=== PATIENT | female | born 1995 | race Caucasian/White ===

== ENCOUNTER 2017-10-29 19:45 | Emergency (ER) | payer MEDICAID ==
[2017-10-29 19:59] VITALS: BP 113/69; PULSE 81; RESP 16; TEMP 98; O2SAT 100
[2017-10-29] MEDS ORDERED: Sodium Chloride 0.9% 1,000 ML IV STA (20:27)
[2017-10-29 21:04] LABS: BASO % 0.3 % (0.0-2.0); EOS # 0.2 K/uL (0.0-0.7); EOS % 2.9 % (0.0-4.0); HEMOGLOBIN 12.4 g/dL (12.0-16.0); LYMPH # 1.5 K/uL (1.0-4.3); MEAN CELL VOLUME 92.1 fl (81.0-99.0); MEAN CORPUSCULAR HEMOGLOBIN 31.4 pg (27.0-31.0); MEAN CORPUSCULAR HGB CONC 34.1 g/dL (33.0-37.0); MEAN PLATELET VOLUME 9.5 fl (7.2-11.7); MONO # 0.5 K/uL (0.0-0.8); MONO % 8.2 % (0.0-10.0); NEUT # 4.1 K/uL (1.8-7.0); NEUT % 65.6 % (50.0-75.0); RBC 3.96 Mil/uL (3.80-5.20); RED CELL DISTRIBUTION WIDTH 12.9 % (11.5-14.5); WHITE BLOOD COUNT 6.3 K/uL (4.8-10.8)
[2017-10-29 21:17] LABS: ALB/GLOB RATIO 1.2 (1.0-2.1); ALBUMIN 4.5 g/dL (3.5-5.0); ALT/SGPT 33 U/L (9-52); AST/SGOT 21 U/L (14-36); BLOOD UREA NITROGEN 12 mg/dl (7-17); CALCIUM 9.2 mg/dL (8.4-10.2); GFR AFRICAN-AMERICAN > 60; GFR NON-AFRICAN AMERICAN > 60; LIPASE 37 U/L (23-300)
[2017-10-29 21:20] LABS: SQUAMOUS EPITHIAL < 1 /hpf (0-5); URINE BILIRUBIN NEGATIVE (NEGATIVE); URINE BLOOD NEGATIVE (NEGATIVE); URINE CLARITY CLEAR (Clear); URINE COLOR YELLOW (YELLOW); URINE GLUCOSE (UA) NEG (Normal); URINE LEUKOCYTE ESTERASE NEG Leu/uL (Negative); URINE PROTEIN NEGATIVE (NEGATIVE); URINE UROBILINOGEN 0.2-1.0 mg/dL (0.2-1.0)
--- NOTE | 2017-10-29 21:24 | ED PDOC ---
HPI: Abdomen Time Seen by Provider: 10/29/17 20:09 Chief Complaint (Nursing): Abdominal Pain Chief Complaint (Provider): Abdominal pain History Per: Patient History/Exam Limitations: no limitations Onset/Duration Of Symptoms: Days (2) Outside of [place] travel?: No Current Symptoms Are (Timing): Still Present Location Of Pain/Discomfort: Diffuse Quality Of Discomfort: "Pain" Associated Symptoms: Nausea, Back Pain. denies: Vomiting Additional History Per: Patient Additional Complaint(s): 21yo female, presents to ED with complaints of abdominal pain and flank pain for the past 2 days. Patient states the pain radiates to her right flank and reports she had similar pain in the past which was related to an ovarian cyst. She denies any fever, and states she has been taking Motrin/ Tylenol with occasional relief. She reports occasional nausea but denies any vomiting or diarrhea; patient has normal appetite as well. No other medical complaints. Abnormal Vaginal Bleeding: No Last Menstral Period: 10/05/17 Past Medical History Reviewed: Historical Data, Nursing Documentation, Vital Signs Vital Signs: Last Vital Signs Temp 98.0 F 10/29/17 19:56 Pulse 81 10/29/17 19:56 Resp 16 10/29/17 19:56 BP 113/69 10/29/17 19:56 Pulse Ox 100 10/29/17 21:27 - Medical History PMH: No Chronic Diseases - Surgical History Surgical History: No Surg Hx - Family History Family History: States: No Known Family Hx - Home Medications Home Medications: Ambulatory Orders Medication Instructions Recorded Naproxen [Naprosyn] 500 mg PO Q12 #14 tab 10/29/17 - Allergies Allergies/Adverse Reactions: Allergies Allergy/AdvReac Type Severity Reaction Status Date / Time No Known Allergies Allergy Verified 10/29/17 20:27 Review of Systems ROS Statement: Except As Marked, All Systems Reviewed And Found Negative Constitutional: Negative for: Fever, Chills Gastrointestinal: Positive for: Nausea, Abdominal Pain. Negative for: Vomiting , Diarrhea Musculoskeletal: Positive for: Back Pain (right flank pain) Physical Exam - Reviewed Nursing Documentation Reviewed: Yes Vital Signs Reviewed: Yes - Physical Exam Appears: Positive for: Non-toxic, No Acute Distress Head Exam: Positive for: ATRAUMATIC Skin: Positive for: Normal Color Eye Exam: Positive for: Normal appearance Neck: Positive for: Supple Cardiovascular/Chest: Positive for: Regular Rate, Rhythm Respiratory: Positive for: Normal Breath Sounds Gastrointestinal/Abdominal: Positive for: Soft, Tenderness (diffuse). Negative for: Mass, Guarding, Rebound Back: Positive for: R CVA Tenderness. Negative for: L CVA Tenderness Extremity: Positive for: Normal ROM Neurologic/Psych: Positive for: Alert, Oriented. Negative for: Motor/Sensory Deficits - Laboratory Results Result Diagrams: 10/29/17 20:50 10/29/17 20:50 - ECG O2 Sat by Pulse Oximetry: 100 (RA) Pulse Ox Interpretation: Normal Medical Decision Making Medical Decision Making: Impression: 21yo female with abdominal and flank pain, known history of ovarian cyst Plan: -- US Transvaginal -- IV Fluids -- Toradol 30mg IV -- Zofran 4mg IV -- Urinalysis -- Labs Progress: 2313 US FINDINGS: Uterus/cervix: Unremarkable. Normal endometrial stripe thickness 7 mm. No myometrial mass. Uterus measures 5.9 cm x 2.5 cm x 3.7 cm. Right ovary: Unremarkable. No mass. Normal blood flow. 2 cm x 1.5 cm x 1.3 cm. Left ovary: Unremarkable. No mass. Normal blood flow. 2.5 cm x 1.8 cm x 2.2 cm Free fluid: Small volume of free fluid in the cul-de-sac.. IMPRESSION: 1. Small volume of free fluid in the cul-de-sac 2. Otherwise Normal pelvic ultrasound. 2345 Labs reviewed: no clinically significant abnormalities. Patient reports improvement in symptoms. Given finding of small amount of free fluid on US, patient likely had ovarian cyst. Provider reinforced need to follow up with [employer] regarding findings. Patient is stable for discharge home. Dx: ovarian cyst Condition: improved Scribe attestation: Documented by Angie Dias and Marbella Chang acting as a scribe for Ramos Byrnes MD. Provider attestation: All medical record entries made by the Scribe were at my direction and personally dictated by me. I have reviewed the chart and agree that the record accurately reflects my personal performance of the history, physical exam, medical decision making, and the department course for this patient. I have also personally directed, reviewed, and agree with the discharge instructions and disposition. Disposition - Clinical Impression Clinical Impression: Ovarian cyst - Patient ED Disposition Is Patient to be Admitted: No - Disposition [facility] Disposition: Routine/Home Disposition Time: 23:45 Condition: IMPROVED Prescriptions: Naproxen [Naprosyn] 500 mg PO Q12 #14 tab Instructions: Ovarian Cysts Forms: [employer] ([place])
--- NOTE | 2017-10-30 09:23 | US ---
HISTORY: hx ov cyst; pelvic pain COMPARISON: None available. TECHNIQUE: Grayscale, color Doppler and spectral evaluation the pelvis performed transvaginally FINDINGS: UTERUS: Measures 5.9 x 2.5 x 3.7 cm. Anteverted. Normal in size and appearance. No fibroid or other mass lesion seen. ENDOMETRIUM: Measures 7 mm in diameter. Unremarkable. CERVIX: No cervical abnormality identified. RIGHT OVARY: Measures 2.1 x 1.5 x 1.3 cm. No solid mass. Normal flow. LEFT OVARY: Measures 2.5 x 1.8 x 2.2 cm. No solid mass. Normal flow. FREE FLUID: Trace fluid in the cul de sac. OTHER FINDINGS: None. IMPRESSION: Unremarkable pelvic ultrasound. No ovarian cyst.
== END 2017-10-29 23:58 | disposition home or self-care (01) ==
LOC: H.ER 19:45
DX: N83.209 Unspecified ovarian cyst, unspecified side (principal)
CPT/HCPCS: 76830; 80053; 81003; 81025; 83690; 85025; 96360; 99283; J1885; J2405; J7030

== ENCOUNTER 2018-07-09 03:27 | Emergency (ER) | payer MEDICAID ==
[2018-07-09 03:44] VITALS: BMI 26.6
--- NOTE | 2018-07-09 04:01 | ED PDOC ---
HPI: Abdomen Chief Complaint (Provider): abdominal pain History Per: Patient History/Exam Limitations: no limitations Onset/Duration Of Symptoms: Hrs (3) Current Symptoms Are (Timing): Still Present Location Of Pain/Discomfort: Diffuse Quality Of Discomfort: "Pain" Associated Symptoms: Urinary Symptoms Additional Complaint(s): 22 y/o female presents for evaluation of abdominal pain x 3 hours. PAtient states pain woke her from her sleep, initially in right lower abdomen, has since spread across whole abdomen. Associated dysuria. Denies fever, nausea/vomiting, changes in bowel movements, hematuria, vaginal bleeding/discharge. Naproxen taken with little improvement <Anne Carter - Last Filed: 07/09/18 05:48> <Jaylen Ash - Last Filed: 07/09/18 06:43> Time Seen by Provider: 07/09/18 03:36 Chief Complaint (Nursing): Female Genitourinary Past Medical History Reviewed: Historical Data, Nursing Documentation, Vital Signs Vital Signs: Last Vital Signs Temp 97.8 F 07/09/18 03:44 Pulse 79 07/09/18 03:44 Resp 18 07/09/18 03:44 BP 113/64 07/09/18 03:44 Pulse Ox 100 07/09/18 03:44 - Medical History PMH: No Chronic Diseases - Surgical History Surgical History: No Surg Hx - Family History Family History: States: No Known Family Hx - Living Arrangements Living Arrangements: With Family <Anne Carter - Last Filed: 07/09/18 05:48> Vital Signs: Last Vital Signs Temp 97.8 F 07/09/18 03:44 Pulse 79 07/09/18 03:44 Resp 18 07/09/18 03:44 BP 113/64 07/09/18 03:44 Pulse Ox 100 07/09/18 05:58 <Jaylen Ash - Last Filed: 07/09/18 06:43> - Home Medications Home Medications: Ambulatory Orders Medication Instructions Recorded Naproxen [Naprosyn] 500 mg PO Q12 #14 tab 10/29/17 - Allergies Allergies/Adverse Reactions: Allergies Allergy/AdvReac Type Severity Reaction Status Date / Time No Known Allergies Allergy Verified 07/09/18 03:43 Review of Systems ROS Statement: Except As Marked, All Systems Reviewed And Found Negative Gastrointestinal: Positive for: Abdominal Pain Genitourinary Female: Positive for: Dysuria <Anne Carter C - Last Filed: 07/09/18 05:48> Physical Exam - Reviewed Nursing Documentation Reviewed: Yes Vital Signs Reviewed: Yes - Physical Exam Appears: Positive for: Well, Non-toxic, No Acute Distress Head Exam: Positive for: ATRAUMATIC, NORMAL INSPECTION, NORMOCEPHALIC Skin: Positive for: Normal Color Eye Exam: Positive for: Normal appearance ENT: Positive for: Normal ENT Inspection Cardiovascular/Chest: Positive for: Regular Rate, Rhythm Respiratory: Positive for: Normal Breath Sounds Gastrointestinal/Abdominal: Positive for: Bowel Sounds, Soft, Tenderness (diffuse; worse RLQ) Back: Positive for: Normal Inspection Extremity: Positive for: Normal ROM Neurologic/Psych: Positive for: Alert, Oriented (x3) <Anne Carter C - Last Filed: 07/09/18 05:48> - Laboratory Results Result Diagrams: 07/09/18 04:05 07/09/18 04:05 - ECG O2 Sat by Pulse Oximetry: 100 - Progress ED Course And Treament: -upreg -udip -cbc -cmp -urinalysis -urine c&s -CT abd/pelvis -IV toradol -IV NS bolus <Anne Carter C - Last Filed: 07/09/18 05:48> - Laboratory Results Result Diagrams: 07/09/18 04:05 07/09/18 04:05 Lab Results: Total Bilirubin 0.4 mg/dl (0.2-1.3) 07/09/18 04:05 AST 21 U/L (14-36) 07/09/18 04:05 ALT 30 U/L (9-52) 07/09/18 04:05 Alkaline Phosphatase 65 U/L (38-126) 07/09/18 04:05 Total Protein 8.1 G/DL (6.3-8.2) 07/09/18 04:05 Albumin 4.3 g/dL (3.5-5.0) 07/09/18 04:05 Globulin 3.8 gm/dL (2.2-3.9) 07/09/18 04:05 Albumin/Globulin Ratio 1.1 (1.0-2.1) 07/09/18 04:05 Urine Color Yellow (YELLOW) 07/09/18 04:05 Urine Clarity Slighty-cloudy (Clear) 07/09/18 04:05 Urine pH 6.0 (5.0-8.0) 07/09/18 04:05 Ur Specific [place] 1.024 (1.003-1.030) 07/09/18 04:05 Urine Protein Negative mg/dL (NEGATIVE) 07/09/18 04:05 Urine Glucose (UA) Neg mg/dL (NEGATIVE) 07/09/18 04:05 Urine Ketones Negative mg/dL (NEGATIVE) 07/09/18 04:05 Urine Blood Negative (NEGATIVE) 07/09/18 04:05 Urine Nitrate Negative (NEGATIVE) 07/09/18 04:05 Urine Bilirubin Negative (NEGATIVE) 07/09/18 04:05 Urine Urobilinogen 0.2-1.0 mg/dL (0.2-1.0) 07/09/18 04:05 Ur Leukocyte Esterase Trace Rudy/uL (Negative) 07/09/18 04:05 Urine RBC (Auto) 1 /hpf (0-3) 07/09/18 04:05 Urine Microscopic WBC 1 /hpf (0-5) 07/09/18 04:05 Ur Squamous Epith Cells 2 /hpf (0-5) 07/09/18 04:05 <Jaylen Ash - Last Filed: 07/09/18 06:43> Medical Decision Making Medical Decision Makin CT SCAN OF THE ABDOMEN AND PELVIS WITH CONTRAST. CLINICAL HISTORY: Abdominal pain. TECHNIQUE: Multiple axial and coronal CT images were obtained through the abdomen and pelvis after administration of intravenous contrast material. COMMENTS: Diffuse thickening of the bladder. 1.7 cm follicle/corpus luteum cyst of the left ovary. Mild amount of free pelvic fluid. Moderate amount of fecal residue in the large bowels. The liver is of uniform attenuation without mass or defect. There is no intra or extrahepatic biliary ductal dilatation. The spleen is normal. The gallbladder is within normal limits. The pancreas is of normal contour and attenuation characteristics. There is no evidence of adrenal mass. Both kidneys demonstrate prompt and equal nephrograms. The kidneys are normal in size, shape and configuration. There is no evidence of renal or ureteral mass. No renal or ureteral calculi are identified. There is no hydroureter or hydronephrosis. No evidence for appendicitis. There is no bowel wall thickening. No evidence for small or large bowel obstruction. There is no evidence of intrinsic or extrinsic bladder mass. Images of the lung bases show no evidence of pleural or parenchymal mass. There are no pleural effusions. The bony structures are free of lytic or blastic lesions. IMPRESSION: Diffuse thickening of the bladder. Mild cystitis. 1.7 cm follicle/corpus luteum cyst of the left ovary. Mild amount of free pelvic fluid. Moderate amount of fecal residue in the large bowels. Thank you for your kind referral of this patient. Electronically signed on Jul 09, 2018 6:33:30 AM EST by: Jeanette Muniz M.D., Certified by ABR, MSK, Neuroradiology Patient re-evaluated at the bedside, states she's feeling much better Advised patient of her results, states she has a long-standing history of constipation Advised patient to followup with primary care and [employer] Very well appearing upon discharge with normal vitals <Jaylen Ash - Last Filed: 07/09/18 06:43> Disposition - Disposition Disposition Time: 06:00 Patient Signed Over To: Jaylen Ash Handoff Comments: p'ing CT, re-eval <Anne Carter - Last Filed: 07/09/18 05:48> - Disposition Disposition: Routine/Home Disposition Time: 06:43 <Jaylen Ash - Last Filed: 07/09/18 06:43> - Clinical Impression Clinical Impression: Abdominal pain - Disposition Referrals: Lyn Gaona MD [Staff Provider] - [facility] [Outside] Condition: STABLE Instructions: Acute Abdomen (Belly Pain), Adult (DC), Ovarian Cysts, Constipation in Adults Forms: [facility] ([place])
[2018-07-09] MEDS: Sodium Chloride 0.9% 1,000 ML IV STA (04:15)
[2018-07-09 04:41] LABS: SQUAMOUS EPITHIAL 2 /hpf (0-5); URINE BILIRUBIN NEGATIVE (NEGATIVE); URINE BLOOD NEGATIVE (NEGATIVE); URINE CLARITY SLIGHTY-CLOUDY (Clear); URINE COLOR YELLOW (YELLOW); URINE GLUCOSE (UA) NEG (NEGATIVE); URINE LEUKOCYTE ESTERASE TRACE Leu/uL (Negative); URINE PROTEIN NEGATIVE (NEGATIVE); URINE UROBILINOGEN 0.2-1.0 mg/dL (0.2-1.0)
[2018-07-09 04:43] LABS: BASO % 0.7 % (0.0-2.0); EOS # 0.4 K/uL (0.0-0.7); EOS % 7.5 % (0.0-4.0); HEMOGLOBIN 12.4 g/dL (12.0-16.0); LYMPH # 1.5 K/uL (1.0-4.3); MEAN CELL VOLUME 92.6 fl (81.0-99.0); MEAN CORPUSCULAR HGB CONC 33.4 g/dL (33.0-37.0); MEAN PLATELET VOLUME 9.8 fl (7.2-11.7); MONO # 0.6 K/uL (0.0-0.8); MONO % 9.8 % (0.0-10.0); NEUT # 3.2 K/uL (1.8-7.0); NRBC % 0.1 % (0.0-0.0); RED CELL DISTRIBUTION WIDTH 13.1 % (11.5-14.5); WHITE BLOOD COUNT 5.8 K/uL (4.8-10.8)
[2018-07-09 04:51] LABS: ALB/GLOB RATIO 1.1 (1.0-2.1); ALBUMIN 4.3 g/dL (3.5-5.0); ALT/SGPT 30 U/L (9-52); AST/SGOT 21 U/L (14-36); BLOOD UREA NITROGEN 15 mg/dl (7-17); CALCIUM 8.8 mg/dL (8.4-10.2); GFR NON-AFRICAN AMERICAN > 60
[2018-07-09] MEDS ORDERED: Iohexol 300 100 ML IJ ONE (05:22)
[2018-07-09] MEDS ORDERED: Sodium Chloride 0.9% 50 ML IV ONE (05:22)
[2018-07-09 06:54] VITALS: BP 113/61; PULSE 72; RESP 17; TEMP 98.1; O2SAT 98
--- NOTE | 2018-07-09 09:50 | CT ---
Date of service: 2018-07-09 05:23:45 PROCEDURE: CT Abdomen and Pelvis.. HISTORY: Abdominal pain COMPARISON: None. TECHNIQUE: Contiguous axial images of the abdomen and pelvis performed following intravenous injection of approximately 85 cc of Omnipaque 300 contrast material. Additional 2D sagittal and coronal reformats generated. Radiation dose: Total exam DLP = 336.01 mGy-cm. This CT exam was performed using one or more of the following dose reduction techniques: Automated exposure control, adjustment of the mA and/or kV according to patient size, and/or use of iterative reconstruction technique. FINDINGS: LOWER THORAX: Heart size within range of normal. No significant pericardial effusion. Small hiatal hernia. Lung bases are clear without focal consolidation effusion or basilar pneumothorax. LIVER: Liver exhibits normal size measuring nearly 17 cm in CC dimension. No obvious hepatic masses collections or calcifications. Portal and splenic veins opacified. GALLBLADDER AND BILE DUCTS: Gallbladder physiologically distended. No evidence of intraluminal gallbladder calculi. PANCREAS: Unremarkable. No mass. No ductal dilatation. SPLEEN: Unremarkable. No splenomegaly. ADRENALS: Unremarkable. KIDNEYS AND URETERS: Unremarkable. No stone or hydronephrosis. BLADDER: Urinary bladder appears incompletely distended which may in part account for thick-walled appearance however correlation with urinalysis recommended to exclude cystitis. REPRODUCTIVE: There appears to be a ring-enhancing left adnexal cystic structure which measures approximately 19 mm x 15 mm; rule out involuting and/or hemorrhagic ovarian cyst.. Small amount ascites seen within the cul-de-sac which exhibits Hounsfield units in the upper teens suggesting some proteinaceous component.. APPENDIX: What is felt to represent a normal partially air and debris filled appendix best seen on axial image number [id number]. BOWEL: Evaluation of the bowel is somewhat limited due to the lack of oral contrast material. The stomach is incompletely distended. Visualized loops of small bowel exhibit relatively normal contour and caliber some of which appear to contained fecalized content. There is a moderate to large amount of stool seen within the of stool seen within the the colon consistent with mild fecal retention/constipation. PERITONEUM: Unremarkable. No fluid collection. No free air. Tiny fat containing umbilical hernia. LYMPH NODES: Unremarkable. No enlarged lymph nodes. VASCULATURE: Unremarkable. No aortic aneurysm. No aortic atherosclerotic calcification or mural plaque present. BONES: No fracture or destructive lesion. OTHER FINDINGS: None. IMPRESSION: Small involuting and/or hemorrhagic left ovarian cyst with small amount of a slightly proteinaceous fluid in the cul de sac. Rule out ruptured ovarian cyst. Findings also consistent with constipation. Urinary bladder incompletely distended with slight thick-walled appearance. Rule out cystitis with urinalysis correlation.
== END 2018-07-09 06:53 | disposition home or self-care (01) ==
LOC: H.ER 03:27
DX: N30.90 Cystitis, unspecified without hematuria (principal); N83.202 Unspecified ovarian cyst, left side
CPT/HCPCS: 74177; 80053; 81003; 81025; 85025; 87086; 96360; 99283; J1885; J7030; Q9967

== ENCOUNTER 2018-07-29 13:04 | Emergency (ER) | payer MEDICAID ==
[2018-07-29 13:05] VITALS: BMI 26.6
[2018-07-29 13:17] VITALS: O2SAT 99
--- NOTE | 2018-07-29 13:49 | ED PDOC ---
HPI: CCC, URI, Sore Throat Time Seen by Provider: 07/29/18 13:41 Chief Complaint (Nursing): ENT Problem Chief Complaint (Provider): Influenza like symptoms History Per: Patient, Family History/Exam Limitations: no limitations Have you had recent travel within the past 21 days to any of the following countries: [place], [place], [place] or [place]?: No Onset/Duration Of Symptoms: Days (two days) Current Symptoms Are (Timing): Still Present (Pt presents with a dx of three weeks complaining of sore throat, fever, and upper respiratory symptoms such as nasal congestion and cough. Pt denies nausea, vomiting or diarhhea, pt denies urinary symptoms or vaginal discharge or bleeding as well as pelvic pain. Pt has not established OB care at this point and does not have a PMD.) Location Of Pain: Throat Sick Contacts (Context): None Past Medical History Reviewed: Historical Data, Nursing Documentation, Vital Signs Vital Signs: Last Vital Signs Temp 100 F H 07/29/18 13:14 Pulse 108 H 07/29/18 13:14 Resp 18 07/29/18 13:14 BP 132/74 07/29/18 13:14 Pulse Ox 99 07/29/18 13:14 - Family History Family History: States: Unknown Family Hx - Home Medications Home Medications: Ambulatory Orders Medication Instructions Recorded Naproxen [Naprosyn] 500 mg PO Q12 #14 tab 10/29/17 Oseltamivir Phosphate [Tamiflu] 75 mg PO BID #10 capsule 07/29/18 Prenat Vit 17/Iron/Folic/Om3,6 1 each PO DAILY #90 capsule 07/29/18 [Elite-Ob 400 Capsule] - Allergies Allergies/Adverse Reactions: Allergies Allergy/AdvReac Type Severity Reaction Status Date / Time No Known Allergies Allergy Verified 07/09/18 03:43 Review of Systems ROS Statement: Except As Marked, All Systems Reviewed And Found Negative Constitutional: Positive for: Fever, Chills ENT: Positive for: Nose Discharge, Nose Congestion, Throat Pain. Negative for: Mouth Swelling, Throat Swelling Respiratory: Positive for: Cough Gastrointestinal: Negative for: Nausea, Vomiting, Abdominal Pain Genitourinary Female: Negative for: Dysuria, Hematuria, Vaginal Discharge, Vaginal Bleeding, Pelvic Pain Physical Exam - Reviewed Nursing Documentation Reviewed: Yes Vital Signs Reviewed: Yes - Physical Exam Appears: Positive for: Well, Non-toxic, No Acute Distress. Negative for: Uncomfortable Head Exam: Positive for: ATRAUMATIC, NORMAL INSPECTION Skin: Positive for: Normal Color, Warm, Dry. Negative for: Diaphoresis, Pallor, Rash Eye Exam: Positive for: Normal appearance. Negative for: Nystagmus, Periorbital swelling, Periorbital tenderness ENT: Positive for: Pharynx Is (erythematous with mild exudate on the tonsillar pillars; tonsils are at +1/+2 with a non-edematous and centerline uvula.), Nasal Congestion, Pharyngeal Erythema, Tonsillar Exudate, Tonsillar Swelling Cardiovascular/Chest: Positive for: Regular Rate, Rhythm, Chest Non Tender Respiratory: Positive for: Normal Breath Sounds. Negative for: Accessory Muscle Use, Crackles, Rales, Stridor, Wheezing, Respiratory Distress Pulses-Carotid (L): 2+ Pulses-Carotid (R): 2+ Pulses-Radial (L): 2+ Pulses-Radial (R): 2+ Lymphatic: Positive for: Other (cervical lymphadenapathy at +1/+1) - ECG O2 Sat by Pulse Oximetry: 99 Medical Decision Making Medical Decision Making: URI vs Influenza vs Pharyngitis P: Tylenol for fever Strep and Influenza swab Disposition - Clinical Impression Clinical Impression: Influenza A, Acute pharyngitis with influenza Doctor Will See Patient In The: Office Counseled Patient/Family Regarding: Diagnosis, Need For Followup, Rx Given - Disposition [facility]errals: [facility] [Outside] [facility] Disposition Time: 15:53 Condition: STABLE Prescriptions: Oseltamivir Phosphate [Tamiflu] 75 mg PO BID #10 capsule Prenat Vit 17/Iron/Folic/Om3,6 [Elite-Ob 400 Capsule] 1 each PO DAILY #90 capsule Instructions: Flu, Adult (DC), Sore Throat, Adult (DC), Viral Pharyngitis (DC), Flu Forms: [employer] ([place]ian)
[2018-07-29 16:14] VITALS: BP 128/72; PULSE 92; RESP 16; TEMP 98.9
== END 2018-07-29 16:15 | disposition home or self-care (01) ==
LOC: H.ER 13:04
DX: J11.1 Influenza due to unidentified influenza virus with other respiratory manifestations (principal); J02.9 Acute pharyngitis, unspecified; O99.511 Diseases of the respiratory system complicating pregnancy, first trimester; Z3A.01 Less than 8 weeks gestation of pregnancy

== ENCOUNTER 2018-08-05 17:06 | Emergency (ER) | payer MEDICAID ==
[2018-08-05 17:07] VITALS: BMI 26.6
[2018-08-05 17:46] VITALS: RESP 18; O2SAT 100
[2018-08-05] MEDS ORDERED: Albuterol-Ipratrop 3 mg / 0.5 (3 ml) UD INH STA (19:30)
--- NOTE | 2018-08-05 20:18 | ED PDOC ---
HPI: Skin/Bite Injury Time Seen by Provider: 08/05/18 17:53 Chief Complaint (Nursing): Wound Check Chief Complaint (Provider): Pilonidal cyst History Per: Patient History/Exam Limitations: no limitations Onset/Duration Of Symptoms: Days (1) Current Symptoms Are (Timing): Still Present Quality Of Symptoms: Painful Additional History Per: Patient Additional Complaint(s): 22yo female EGA of 7 weeks, history of pilonidal cysts, sent to ER from clinic for evaluation of a pilonidal cyst. She reports she was at the clinic for her first pre- exam when she was informed of the cyst; patient reports pain to the area since yesterday. Otherwise, no fever, chills or drainage from the site. No additional complaints. Past Medical History Reviewed: Historical Data, Nursing Documentation, Vital Signs Vital Signs: Last Vital Signs Temp 98.3 F 08/05/18 17:45 Pulse 85 08/05/18 17:45 Resp 18 08/05/18 17:45 BP 118/75 08/05/18 17:45 Pulse Ox 100 08/05/18 17:45 - Medical History PMH: No Chronic Diseases - Surgical History Surgical History: No Surg Hx - Family History Family History: States: Unknown Family Hx - Home Medications Home Medications: Ambulatory Orders Medication Instructions Recorded Naproxen [Naprosyn] 500 mg PO Q12 #14 tab 10/29/17 Oseltamivir Phosphate [Tamiflu] 75 mg PO BID #10 capsule 07/29/18 Prenat Vit 17/Iron/Folic/Om3,6 1 each PO DAILY #90 capsule 07/29/18 [Elite-Ob 400 Capsule] Cephalexin [Keflex] 500 mg PO Q6 7 Days capsule 08/05/18 - Allergies Allergies/Adverse Reactions: Allergies Allergy/AdvReac Type Severity Reaction Status Date / Time No Known Allergies Allergy Verified 07/09/18 03:43 Review of Systems ROS Statement: Except As Marked, All Systems Reviewed And Found Negative Constitutional: Negative for: Fever, Chills Genitourinary Female: Positive for: Other (pain due to pilonidal cyst) Physical Exam - Reviewed Nursing Documentation Reviewed: Yes Vital Signs Reviewed: Yes - Physical Exam Appears: Positive for: Non-toxic, Uncomfortable Head Exam: Positive for: ATRAUMATIC, NORMAL INSPECTION, NORMOCEPHALIC Skin: Positive for: Normal Color Eye Exam: Positive for: EOMI, PERRL Neck: Positive for: Supple Cardiovascular/Chest: Positive for: Regular Rate, Rhythm. Negative for: Tac hycardia Respiratory: Positive for: Normal Breath Sounds. Negative for: Respiratory Distress Rectal: Positive for: Other (2cm area of fluctuance at crease of buttock, more on left. No erythema, or drainage; + tenderness to palpation) Neurological/Psych: Positive for: Awake, Alert, Oriented (x 3) - ECG O2 Sat by Pulse Oximetry: 100 (RA) Pulse Ox Interpretation: Normal Medical Decision Making Medical Decision Makinyo female with pilonidal cyst Plan: -- Discussed with patient plan for I&D and is agreeable Lidocaine 1% used for local anesthesia. 2044 Abscess incised and drained, packing placed. Patient tolerated procedure well; see procedure note. Patient to be given prescription for Keflex, instructed to take Tylenol for pain and follow up with general surgeon in 2-3 days. Scribe Attestation: Documented by Angie Dias acting as a scribe for DOC Cheng. Provider Scribe Attestation: All medical record entries made by the Scribe were at my direction and personally dictated by me. I have reviewed the chart and agree that the record accurately reflects my personal performance of the history, physical exam, medical decision making, and the department course for this patient. I have also personally directed, reviewed, and agree with the discharge instructions and disposition. Disposition - Clinical Impression Clinical Impression: Pilonidal cyst - Patient ED Disposition Is Patient to be Admitted: No - Disposition Referrals: Neymar Ovalles MD [Staff Provider] - Disposition: Routine/Home Disposition Time: 21:30 Condition: STABLE Additional Instructions: Keep dressing on for 24hrs then remove it and wash area with soap and water. Remove packing in 2 days and continue to use dressing. Return to ER if you develop fevers, chills, bleeding from area. Otherwise, follow up with general surgeon. Complete full course of antibiotics as prescribed. Take Tylenol for pain. Use Sitz baths for comfort. Prescriptions: Cephalexin [Keflex] 500 mg PO Q6 7 Days capsule Instructions: Pilonidal Cyst (DC) Forms: [employer] (Georgian) Print Language: NAMIBIAN Procedures - Time-Out Type of Procedure: Incision and drinage Site of Procedure: Pilonidal cyst Correct Patient (with visual ID + MR# on ID Band): Yes Correct Procedure: Yes - Incision and Drainage Site: Cleft between buttocks Blade Size: 11 I & D Procedure: betadine prep, sterile drapes applied, sterile dressing applied, gauze wick placed Progress: Minimal purulent drainage noted after incision; loculations probed and broken up; wound packed with sterile gauze. Lidocaine 1% used for local anesthesia. Patient tolerated procedure well.
[2018-08-05] MEDS ORDERED: Lidocaine Hydrochloride 1% 10 ML ONE (20:25)
[2018-08-05] MEDS: Povidone Iodine Topical 10% Sol TOP STA (20:28)
[2018-08-05] MEDS: Lidocaine/Epi 1% 1:100000 20 ML IJ STA (20:28)
[2018-08-05] MEDS ORDERED: Lidocaine 1% w Epi 1:100,000 Inj ONE (20:29)
[2018-08-05 21:32] VITALS: BP 118/78; PULSE 78; TEMP 98
== END 2018-08-05 21:30 | disposition home or self-care (01) ==
LOC: H.ER 17:06
DX: L05.91 Pilonidal cyst without abscess (principal); O99.711 Diseases of the skin and subcutaneous tissue complicating pregnancy, first trimester; Z3A.01 Less than 8 weeks gestation of pregnancy

== ENCOUNTER 2018-10-09 13:45 | Emergency (ER) | payer MEDICAID ==
[2018-10-09 14:14] VITALS: BMI 25.1
[2018-10-09 14:58] VITALS: TEMP 98.3
[2018-10-09 15:24] LABS: SQUAMOUS EPITHIAL 6 /hpf (0-5); URINE BACTERIA RARE (<OCC); URINE BILIRUBIN NEGATIVE (NEGATIVE); URINE BLOOD NEGATIVE (NEGATIVE); URINE CLARITY SLIGHTY-CLOUDY (Clear); URINE COLOR YELLOW (YELLOW); URINE GLUCOSE (UA) NEG (NEGATIVE); URINE LEUKOCYTE ESTERASE NEG Leu/uL (Negative); URINE PROTEIN NEGATIVE (NEGATIVE); URINE UROBILINOGEN 0.2-1.0 mg/dL (0.2-1.0)
[2018-10-09 20:41] VITALS: BP 116/55; PULSE 77; RESP 16; O2SAT 99
== END 2018-10-09 15:40 | disposition home or self-care (01) ==
LOC: H.EROB2 13:45
DX: O26.92 Pregnancy related conditions, unspecified, second trimester (principal); R10.2 Pelvic and perineal pain; M54.5 Low back pain; Z3A.16 16 weeks gestation of pregnancy